=== PATIENT | male | born 1930 | race Caucasian/White ===

== ENCOUNTER 2017-11-20 13:17 | Emergency (ER) | payer MEDICARE ==
[~2017-11-20 13:17] MED LIST: BICA50TA7 PO; CALC-190 PO; LEVO125T95 PO; OXYB10TA PO; TAMS0.4C32 PO; WARF7.5T49 PO
[2017-11-20 13:48] LABS: BASOPHILS % (AUTO) 1.6 % (0.0-5.0); EOSINOPHILS % (AUTO) 1.7 % (0.0-8.0); HEMATOCRIT 30.4 % (42-54); LYMPHOCYTES % (AUTO) 11.1 % (21.0-51.0); MEAN CORPUSCULAR HEMOGLOBIN 31.1 pg (27.0-33.0); MEAN CORPUSCULAR VOLUME 91.4 fL (79-99); MONOCYTES % (AUTO) 6.6 % (3.0-13.0); NUCLEATED RED BLOOD CELLS 0.1 % (0.0-0.19); PLATELET COUNT (AUTO) 297 K/uL (130-400); RED BLOOD CELL COUNT(AUTO) 3.32 MIL/uL (4.50-6.20); RED CELL DISTRIBUTION WIDTH 17.8 % (11.0-15.5); WHITE BLOOD COUNT (AUTO) 6.3 K/uL (4.8-10.8)
[2017-11-20] MEDS ORDERED: KETOROLAC TROMETHAMINE 15MG/ML ONE (14:13)
[2017-11-20 14:18] LABS: CREATININE 1.2 mg/dL (0.5-1.5); POTASSIUM 4.9 mmol/L (3.5-5.1)
[2017-11-20 14:29] LABS: INR 5.11 (0.85-1.15)
[2017-11-20 14:32] LABS: ALBUMIN 3.3 g/dL (3.5-5.0); BILIRUBIN,TOTAL 0.7 mg/dL (0.2-1.0); CREATINE KINASE MB 2.8 ng/mL (0.5-3.6); TOTAL PROTEIN, SERUM 7.1 g/dL (6.0-8.3)
== END 2017-11-20 17:00 | disposition home or self-care (01) ==
LOC: EDH 13:17
DX: M25.572 Pain in left ankle and joints of left foot (principal); C61 Malignant neoplasm of prostate; R79.1 Abnormal coagulation profile; E07.9 Disorder of thyroid, unspecified; Z88.5 Allergy status to narcotic agent; Z98.890 Other specified postprocedural states; Z79.01 Long term (current) use of anticoagulants; Z79.899 Other long term (current) drug therapy; Z87.891 Personal history of nicotine dependence
CPT/HCPCS: 36415; 73630; 80053; 82550; 82553; 84484; 85025; 85610; 85730; 96374; 99285; J1885